=== PATIENT | male | born 1990 | race African-American/Black ===

== ENCOUNTER → 2020-07-13 | Outpatient (CLI) | payer OTHER ==
--- NOTE | 2020-07-13 08:24 | REP ---
INDICATION: INTERCOSTAL PAIN COMPARISON: None TECHNIQUE: Axial noncontrast images from the thoracic inlet to the upper abdomen with coronal and sagittal reformations. This CT examination was performed using the following dose reduction techniques: Automated exposure control, adjustment of mA and/or kv according to the patient's size, and use of iterative reconstruction technique. FINDINGS: The bilateral lung centeno are well aerated, relatively symmetric and essentially clear. Few scattered calcified nodules and calcified hilar lymph nodes are noted and consistent with prior granulomatous disease. No acute consolidation, effusion, or pneumothorax. Tracheobronchial tree is patent. No acute adenopathy. Mediastinum demonstrates normal thoracic aorta, pulmonary vasculature and heart/pericardium by noncontrast evaluation. Surrounding musculoskeletal structures appear intact and normal. IMPRESSION: 1. Evidence for prior granulomatous disease. 2. No acute mediastinal or pleuroparenchymal process. 3. Osseous structures and musculoskeletal structures appear normal. <Electronically signed by Ming Zambrano > 07/13/20 [id number]
== END ==
LOC: M RAD 07:12
PROVIDERS: ATTEND Physician Assistant
DX: R07.82 Intercostal pain (principal)

== ENCOUNTER 2020-10-23 19:46 | Emergency (ER) | payer OTHER ==
[~2020-10-23] VITALS: Ht 172.7 cm; Wt 78.2 kg
--- NOTE | 2020-10-24 00:17 | REPVR ---
PROCEDURE INFORMATION: Exam: CT Head Without Contrast Exam date and time: 10/23/2020 11:49 PM Age: 30 years old Clinical indication: Injury or trauma; Other: Trauma, left parietal; Blunt trauma (contusions or hematomas) TECHNIQUE: Imaging protocol: Computed tomography of the head without contrast. Axial and coronal reformatted images were created and reviewed. Radiation optimization: All CT scans at this facility use at least one of these dose optimization techniques: automated exposure control; mA and/or kV adjustment per patient size (includes targeted exams where dose is matched to clinical indication); or iterative reconstruction. COMPARISON: No relevant prior studies available. FINDINGS: Brain: No CT evidence of acute intracranial hemorrhage or acute territorial infarction. No significant mass effect or midline shift. Basal cisterns patent. Cerebral ventricles: Normal in size and configuration. Paranasal sinuses: Unremarkable. No fluid levels. Mastoid air cells: Grossly unremarkable. Bones/joints: No acute osseous abnormality. Soft tissues: Grossly unremarkable. IMPRESSION: No CT evidence of acute intracranial pathology. Electronically signed by: Marco Mayorga On 10/24/2020 00:16:50 AM
[2020-10-24 00:41] VITALS: BP 118/72
== END 2020-10-24 00:41 | disposition home or self-care (01) ==
LOC: M ED 19:46
DX: S09.90XA Unspecified injury of head, initial encounter (principal); V48.5XXA Car driver injured in noncollision transport accident in traffic accident, initial encounter; Y92.9 Unspecified place or not applicable; Y93.9 Activity, unspecified; Y99.9 Unspecified external cause status

== ENCOUNTER → 2021-05-19 | Outpatient (CLI) | payer OTHER | LOC: M RAD 06:55 | PROVIDERS: ATTEND Internal Medicine Gastroenterology | DX: K82.4 Cholesterolosis of gallbladder (principal); K21.9 Gastro-esophageal reflux disease without esophagitis ==

== ENCOUNTER 2021-06-16 10:11 | Day surgery (SDC) | payer OTHER ==
[~2021-06-16] VITALS: Ht 172.7 cm; Wt 79.4 kg
[~2021-06-16 10:11] MED LIST: NS 1,000 ML IV ONE
[2021-06-16] MEDS ORDERED: fentaNYL 100 MCG/2 ML INJECTION As Ordered ONE (11:24)
[2021-06-16] MEDS ORDERED: propofoL 200 MG/20 ML VIAL As Ordered ONE (11:25)
[2021-06-16] MEDS ORDERED: LIDOCAINE 2% 100MG/5ML SDV (FOR ANES.) As Ordered ONE (11:25)
[2021-06-16 12:17] VITALS: BP 129/79
== END 2021-06-16 12:30 | disposition home or self-care (01) ==
LOC: M OPP 10:11
PROVIDERS: ATTEND Internal Medicine Gastroenterology
DX: K21.00 Gastro-esophageal reflux disease with esophagitis, without bleeding (principal); K22.89 Other specified disease of esophagus; K29.70 Gastritis, unspecified, without bleeding; R12 Heartburn; Z87.891 Personal history of nicotine dependence
CPT/HCPCS: 43239; 88305; J3010

== ENCOUNTER → 2021-07-24 | Outpatient (CLI) | payer OTHER ==
[~2021-07-24] MED LIST changes: -NS 1,000 ML IV ONE; +PROHANCE 279.3MG/ML 15ML VIAL As Ordered ONE
== END ==
LOC: M RAD 09:59
PROVIDERS: ATTEND Internal Medicine Gastroenterology
DX: D18.03 Hemangioma of intra-abdominal structures (principal); K82.4 Cholesterolosis of gallbladder; K76.0 Fatty (change of) liver, not elsewhere classified
CPT/HCPCS: 74183; A9576